=== PATIENT | female | born 1990 | race Caucasian/White ===

== ENCOUNTER 2016-07-15 07:00 | Inpatient (IN) | payer BC ==
[~2016-07-15] VITALS: Ht 167.6 cm; Wt 117.0 kg
--- NOTE | ~2016-07-15 | DS ---
PATIENT'S NAME: BEVERLY HORTA [facility] AGE: 26 Y [address] ROOM: [address] [address] LOCATION: GOBS ADMIT DATE: 07/15/2016 Discharge Summary DISCHARGE DATE: 07/17/2016 FAMILY PHYSICIAN: Annie Garcia MD ATTENDING PHYSICIAN: Annie Garcia DISCHARGE DIAGNOSES: 1. Intrauterine at 39 weeks. 2. Prior section. PROCEDURE: Repeat low transverse section. REASON FOR ADMISSION: This is a patient of Dr. Garcia. She is a . She has had a prior section and presents for repeat. HOSPITAL COURSE: The patient had a repeat low transverse section under a spinal anesthetic. Her postoperative course went well and she was discharged to home on postop day #2 with Motrin and Percocet. She will follow up in the office in 2 weeks and in 6 weeks. I did do a dictated H and P on Beverly and I do not see it anywhere in [employer]. MD HERBERT COON/modl /[id number] d: 07/23/16 0131 t: 08/01/16 0858, DISCHARGE SUMMARY
--- NOTE | ~2016-07-15 | OR ---
PATIENT'S NAME: BEVERLY HORTA [facility] AGE: 26 Y [address] ROOM: [place] [address] LOCATION: [facility] ADMIT DATE: 07/15/2016 OR/Procedure Report DISCHARGE DATE: FAMILY PHYSICIAN: Annie Garcia MD ATTENDING PHYSICIAN: Shira Montgomery SURGEON: Shira Montgomery MD CLINICAL LABORATORY MANAGER: Jose. DATE OF PROCEDURE: 07/15/2016 PREOPERATIVE DIAGNOSES: 1. Intrauterine at 39 weeks. 2. Prior section. 3. Obesity. POSTOPERATIVE DIAGNOSIS: 1. Intrauterine at 39 weeks. 2. Prior section. 3. Obesity. PROCEDURE PERFORMED: Repeat low transverse section. ANESTHESIA: Spinal. BLOOD LOSS: 500 mL. COMPLICATIONS: None. DESCRIPTION OF PROCEDURE: The patient was taken to the operating room, and a verbal time-out was undertaken after she has prepped and draped. A Miranda catheter was placed. A Pfannenstiel skin incision was made with a knife and carried down to the level of the fascia. The fascia was nicked in the midline. The incision was taken out laterally. The fascia sharply and bluntly dissected from the underlying rectus muscles. The peritoneum was opened sharply and incised. The bladder blade was placed. The bladder reflection was taken down sharply and placed behind the bladder blade. A low transverse uterine incision was made with a knife. The vertex was grasped and with some difficulty, primarily because of the pannus. The vertex was delivered over the uterine fascial incision but will not advance further. I did place the vacuum. I had cut three pop offs primarily because the hair. I really never got a good seal and then finally on the fourth time, I was able to deliver the baby's head over the uterine incision. Shoulders and body were delivered. The baby boy lets out a spontaneous cry. His cord was doubly clamped and cut. He had some terminal meconium. He was handed off to the warmer. The arterial cord pH samples collected and cord blood samples collected. Placenta delivered manually and intact. The uterus was exteriorized. Tubes and ovaries were PATIENT'S NAME: BEVERLY HORTA [facility] AGE: 26 Y [address] ROOM: [place] [address] LOCATION: [facility] ADMIT DATE: 07/15/2016 OR/Procedure Report DISCHARGE DATE: FAMILY PHYSICIAN: Annie Garcia MD ATTENDING PHYSICIAN: Shira Montgomery. The uterine incision was closed in a running locking stitch with 2-0 chromic. A second imbricating stitch was performed. The uterus was replaced within the peritoneal cavity. Colic gutters were inspected and found to be dry. The peritoneum was closed with 2-0 Vicryl. 0 Vicryl was used to close the fascia. 2-0 Vicryl was used to close the subcutaneous adipose tissue and a 4-0 Dexon was used to close the skin. The patient tolerated the procedure well. She went to recovery in stable condition. SHIRA MONTGOMERY MD KHP/modl /[id number] d: 07/15/16 1509 t: 07/20/16 1649, OPERATIVE SUMMARY
[2016-07-15 09:10] LABS: BASOPHIL % 0.2 %; EOSINOPHIL % 0.4 %; HEMATOCRIT 38.5 % (33.0-46.0); HEMOGLOBIN 12.9 g/dL (11.0-15.0); IMMATURE GRANULOCYTE % 0.3 %; LYMPHOCYTE # 2.2 K/uL (0.8-4.0); LYMPHOCYTE % 21.8 %; MCH 31.3 pg (27.0-34.0); MCHC 33.5 gm/dL (32.0-36.5); MCV 93.4 fl (83.0-98.0); MONOCYTE # 0.8 K/uL (0.0-1.0); MONOCYTE % 7.5 %; MPV 11.8 fl (9.4-12.4); NEUTROPHIL # (ANC) 6.9 K/uL (1.8-7.8); NEUTROPHIL % 69.8 %; NRBC % 0 /100WBC (0-0.00); PLATELET COUNT 131 K/uL (150-450); RBC 4.12 M/uL (3.50-5.00); RDW-CV 13.6 % (11.9-14.6); WBC 9.9 K/uL (4.0-11.0)
[2016-07-15] MEDS ORDERED: FEOSOL325 MG PO (09:46)
[2016-07-15] MEDS ORDERED: FOLIC ACID1 MG PO (09:47)
[2016-07-15] MEDS ORDERED: PRILOSEC10 MG PO (09:48)
[2016-07-15] MEDS ORDERED: PLAQUENIL200 MG PO (09:49)
[2016-07-15] MEDS ORDERED: DELTASONE2.5 MG PO (09:49)
[2016-07-15] MEDS ORDERED: PRENATAL 1+1)(P1 TAB PO (09:50)
[2016-07-15] MEDS ORDERED: VITAMIN D-32000 UNI1 PO (09:50)
[2016-07-15 10:46] LABS: PCO2 75 mmHg (35-45)
[2016-07-15 10:47] LABS: BICARBONATE 28.1 mmol/L (18.0-23.0); PO2 13 mmHg (80-90)
--- NOTE | 2016-07-15 18:00 | NUR ---
Significant Event: Follow up: VSS, Recovery complete @ 1800, IV sl'd, thrasher to be removed, fundus firm & 1F below, Percocet due @ 1914, last Toradal due @ 2209. Not up out of bed yet, room full of company, pericare last @1600, small rubra, no clots.
[2016-07-16 04:47] LABS: BASOPHIL % 0.2 %; EOSINOPHIL # 0.1 K/uL (0.0-0.5); EOSINOPHIL % 0.9 %; HEMATOCRIT 32.1 % (33.0-46.0); HEMOGLOBIN 10.8 g/dL (11.0-15.0); IMMATURE GRANULOCYTE % 0.2 %; LYMPHOCYTE # 1.7 K/uL (0.8-4.0); LYMPHOCYTE % 18.3 %; MCH 31.8 pg (27.0-34.0); MCHC 33.6 gm/dL (32.0-36.5); MCV 94.4 fl (83.0-98.0); MONOCYTE # 0.8 K/uL (0.0-1.0); MONOCYTE % 8.4 %; MPV 11.6 fl (9.4-12.4); NEUTROPHIL # (ANC) 6.6 K/uL (1.8-7.8); NRBC % 0 /100WBC (0-0.00); RDW-CV 13.8 % (11.9-14.6); WBC 9.1 K/uL (4.0-11.0)
[2016-07-16 04:49] LABS: PLATELET COUNT 102 K/uL (150-450)
--- NOTE | 2016-07-16 05:59 | NUR ---
VSS, FUNDUS FIRM, 1 FINGER BELOW UMBILICUS, SCANT FLOW. 2 PERCOCET LAST GIVEN AT 0315. PT UP AD ANDRÉS AND INDEPENDENT WITH CARES.
--- NOTE | 2016-07-16 18:52 | NUR ---
Last VS: T:98.4 P:86 R: 14 BP: 113/73 Pain rating: . Last pain med: percocets at 1630. Motrin at 1133. Medicated at: Effective: R Lung sounds: , L Lung sounds: clear Fundus: firm and 1 finger down Lochia: , Breasts: , Nipples: Incision: , Incision appearance: dressing taken off in shower. Incision clean and dry with sutures and strips intact. Incision closure: Bowel sounds: yes Passing flatus: yes Voiding well: voding well. Significant event: . Patient has been up and about in room and hallway. saline lock taken out. planning home tomorrow.
--- NOTE | 2016-07-17 04:43 | NUR ---
VSS. Fundus firm and midline. Steristrips dry and intact to lower ABD. Last Dillon and Lila @ 0130. Pt independent with all cares.
[2016-07-17] MEDS ORDERED: SURFAK240 MG PO (09:43)
[2016-07-17] MEDS ORDERED: MOTRIN800 MG PO (09:43)
[2016-07-17] MEDS ORDERED: APNO TOP (09:43)
[2016-07-17] MEDS ORDERED: LANSINOH7 GM TOP (09:43)
[2016-07-17] MEDS ORDERED: PERCOCET 5-3251 EACH PO (09:44)
== END 2016-07-17 15:55 | disposition disaster alternative care site (69) | DRG 766 ==
LOC: GOBS 07:00
PROVIDERS: ADMIT Obstetrics & Gynecology
PROC: 10D00Z1 Extraction of Products of Conception, Low, Open Approach (ICD-10-PCS; principal; 2016-07-15)
DX: O34.211 Maternal care for low transverse scar from previous cesarean delivery (principal); E66.9 Obesity, unspecified; O99.214 Obesity complicating childbirth; Z68.36 Body mass index [BMI] 36.0-36.9, adult; O75.89 Other specified complications of labor and delivery; M06.9 Rheumatoid arthritis, unspecified; E65 Localized adiposity; Z3A.39 39 weeks gestation of pregnancy; Z37.0 Single live birth; Z79.52 Long term (current) use of systemic steroids
CPT/HCPCS: J0690; J1885; J2590; J3010; J7120; J7512